=== PATIENT | male | born 1980 | race Caucasian/White ===

== ENCOUNTER 2017-07-14 15:33 | Outpatient (CLI) | payer OTHER ==
--- NOTE | 2017-07-15 09:41 | XRAY Report ---
THREE VIEW LEFT SHOULDER: 07/14/2017 CLINICAL INDICATION: Pain. FINDINGS: Internal and external rotational views and a scapular Y view of the left shoulder demonstrate no evidence of fracture or dislocation. The joint spaces are preserved. No radiopaque foreign body is seen in the soft tissues. IMPRESSION: NORMAL LEFT SHOULDER. TD: 07/15/2017 09:40
== END 2017-07-14 15:34 | disposition home or self-care (01) ==
LOC: DI.N 15:33
PROVIDERS: ATTEND Specialist
DX: M25.512 Pain in left shoulder (principal)

== ENCOUNTER 2023-05-20 10:18 | Emergency (ER) | payer OTHER ==
[2023-05-20 10:38] VITALS: O2SAT 97
[2023-05-20 10:43] LABS: BASOPHILS # (AUTO) 0.1 10^3/uL (0.0-0.1); BASOPHILS % (AUTO) 0.6 %; EOSINOPHILS # (AUTO) 0.2 10^3/uL (0.0-0.7); EOSINOPHILS % (AUTO) 2.3 %; HCT - HEMATOCRIT 44.8 % (42.0-52.0); HGB - HEMOGLOBIN 14.8 g/dL (14.0-18.0); LYMPHOCYTES # (AUTO) 2.2 10^3/uL (1.5-3.5); LYMPHOCYTES % (AUTO) 21.7 %; MEAN CORPUSCULAR HEMOGLOBIN 26.9 pg (27.0-31.0); MEAN CORPUSCULAR VOLUME 81.5 fL (80.0-94.0); MEAN PLATELET VOLUME 10.1 fL (7.4-11.4); MONOCYTES # (AUTO) 0.6 10^3/uL (0.0-1.0); MONOCYTES % (AUTO) 6.1 %; PLT - PLATELET COUNT 274 10^3/uL (130-450); RED CELL DISTRIBUTION WIDTH 13.4 % (12.0-15.0); WHITE BLOOD COUNT 10.2 x10^3/uL (4.8-10.8)
--- NOTE | 2023-05-20 10:51 | ED Physician Documentation ---
PD HPI CHEST PAIN - Stated complaint Stated Complaint: new rul - Chief complaint Chief Complaint: Cardiac - History of Present Illness Timing - onset: How many hours ago (several hours ago.), Today Timing - onset during: Rest Timing - details: Gradual onset, Still present (has decreased to minimal since onset.), Waxing and waning Quality: Pressure, Tightness. No: Sharp, Tearing Location: Substernal, Left chest (fleeting episodes of chest tightness for few seconds at a time over the past week or so. Nonexertional. Feels better when active (less frequent). Has had more consistent pressure feeling this morning.) Associated symptoms: Palpitations. No: Shortness of air, Nausea, Feeling faint / dizzy Similar symptoms before: Has not had sx before Recently seen: Clinic (went to Walk [facility] and referred to ER for more prompt testing.), Other (had had elevated blood pressure and seen by Dr. Rockwell Cardiology for BP treatment and heart assessment. Had screening ECHO and stress test he believes June 2022 which were normal.) Review of Systems Constitutional: denies: Fever, Chills Nose: denies: Rhinorrhea / runny nose, Congestion Throat: denies: Sore throat Respiratory: denies: Dyspnea, Cough GI: denies: Abdominal Pain, Nausea, Vomiting, Diarrhea PD PAST MEDICAL HISTORY - Past Medical History Cardiovascular: None Respiratory: None Neuro: None Endocrine/Autoimmune: None - Allergies Allergies/Adverse Reactions: Allergies Allergy/AdvReac Type Severity Reaction Status Date / Time No Known Drug Allergies Allergy Verified 05/20/23 10:33 - Social History Does the pt smoke?: No Smoking Status: Never smoker PD ED PE NORMAL - Vitals Vital signs reviewed: Yes - General General: Alert and oriented X 3, No acute distress, Well developed/nourished - Neck Neck: Supple, no meningeal sign, No adenopathy - Cardiac Cardiac: RRR, No murmur - Respiratory Respiratory: No respiratory distress, Clear bilaterally - Abdomen Abdomen: Soft, Non tender - Derm Derm: Normal color, Warm and dry - Extremities Extremities: No edema, No calf tenderness / cord - Neuro Neuro: Alert and oriented X 3, No motor deficit, Normal speech Results - Vitals Vitals: Vital Signs - 24 hr 05/20/23 05/20/23 10:26 12:21 Temperature 36.2 C L Heart Rate 94 89 Respiratory 18 15 Rate Blood Pressure 152/105 H 137/51 H O2 Saturation 97 97 Oxygen O2 Source Room air - EKG (time done) 10:29 EKG releavant findings:: EKG personally interpreted by author of this note. Relevant findings are: Rate: Rate (enter#) (95) [place]: Normal Intervals: Normal [place] QRS: Normal Ischemia: Normal ST segments. No: ST elevation c/w ischemia, ST depression - Labs Labs: Laboratory Tests 05/20/23 05/20/23 05/20/23 10:35 10:35 10:35 WBC 10.2 RBC 5.50 Hgb 14.8 Hct 44.8 MCV 81.5 MCH 26.9 L MCHC 33.0 RDW 13.4 Plt Count 274 MPV 10.1 Neut # (Auto) 7.0 H Lymph # (Auto) 2.2 [place] # (Auto) 0.6 Eos # (Auto) 0.2 Baso # (Auto) 0.1 Absolute Nucleated RBC 0.00 Nucleated RBC % 0.0 Sodium 134 L Potassium 3.9 Chloride 100 L Carbon Dioxide 25 Anion Gap 9.0 BUN 17 Creatinine 0.7 Estimated GFR (MDRD) 125 Glucose 344 H Calcium 9.2 Magnesium 1.8 Total Bilirubin 0.6 AST 19 ALT 31 Alkaline Phosphatase 97 Troponin I High Sens 5.3 B-Natriuretic Peptide Total Protein 7.6 Albumin 4.3 Globulin 3.3 Albumin/Globulin Ratio 1.3 Lipase 26 05/20/23 10:35 WBC RBC Hgb Hct MCV MCH MCHC RDW Plt Count MPV Neut # (Auto) Lymph # (Auto) [place] # (Auto) Eos # (Auto) Baso # (Auto) Absolute Nucleated RBC Nucleated RBC % Sodium Potassium Chloride Carbon Dioxide Anion Gap BUN Creatinine Estimated GFR (MDRD) Glucose Calcium Magnesium Total Bilirubin AST ALT Alkaline Phosphatase Troponin I High Sens B-Natriuretic Peptide 19 Total Protein Albumin Globulin Albumin/Globulin Ratio Lipase - Rads (name of study) chest xray Relevant Findings:: Prelim report reviewed, EMP independent interpretation of test (no acute process) PD Medical Decision Making - ED course Complexity details: reviewed results, considered differential (atypical, nonexertional fleeting episodes of chest discomfort. Consider possible intermi ttent palpitations. Can get trop/BNP to ensure no acute heart process. ), d/w patient Reviewed Lab Results: normal Trop and BNP. Normal CBC and chemistry ordered and reviewed by me. CXR without acute process. Unclear cause of symptoms. Departure - Departure Disposition: 01 Home, Self Care Clinical Impression: Chest discomfort Condition: Stable Record reviewed to determine appropriate education?: Yes Instructions: ED Chest Pain Atypical Unkn Cause Comments: Your chest x-ray, EKG, blood tests that included specifically looking for heart attack and heart failure (troponin and BNP) are normal. No signs of a heart or lung cause to your symptoms at this point. This in combination with your echocardiogram and stress test within the last year are fairly good then at excluding heart disease as a cause. Unclear the cause therefore of your symptoms. Given some intermittent short symptoms at times, another possibility could be irregular heart rhythms intermittently. You could talk with your primary care or Dr. Rockwell regarding this to see if they would want you to wear a Zio patch/Holter type heart rhythm monitor over the course of a week or such to see if any that is occurring. Otherwise stay well-hydrated and usual medicines. I presume therefore your symptoms are more musculoskeletal or such. Tylenol or ibuprofen if needed. Forms: PCP List Discharge Date/Time: 05/20/23 12:34
[2023-05-20 10:57] LABS: ALBUMIN 4.3 g/dL (3.2-5.5); ALBUMIN/GLOBULIN RATIO 1.3 (1.0-2.2); BILIRUBIN,TOTAL 0.6 mg/dL (0.2-1.0); CALCIUM 9.2 mg/dL (8.5-10.3); CREATININE 0.7 mg/dL (0.6-1.3); POTASSIUM 3.9 mmol/L (3.5-4.5); TOTAL PROTEIN 7.6 g/dL (6.4-8.9)
[2023-05-20 11:04] LABS: TROPONIN I HIGH SENSITIVITY 5.3 ng/L (2.3-19.7)
[2023-05-20] MEDS: NITROGLYCERIN SL 0.4 MG TABLET SL STA (11:04)
--- NOTE | 2023-05-20 11:18 | XRAY Report ---
PROCEDURE: Chest 1V INDICATIONS: Chest pain TECHNIQUE: One view of the chest was acquired. COMPARISON: None. FINDINGS: Surgical changes and devices: None. Lungs and pleura: No pleural effusions or pneumothorax. Lungs are clear. Mediastinum: Mediastinal contours appear normal. Heart size is normal. Bones and chest wall: No suspicious bony lesions. Overlying soft tissues appear unremarkable. IMPRESSION: No acute cardiopulmonary process. Reviewed by: Pearl Johnson MD on 05/20/2023 11:17 AM [facility] Approved by: Pearl Johnson MD on 05/20/2023 11:17 AM [facility] Station ID: [id number]
[2023-05-20 12:23] VITALS: BP 137/51
== END 2023-05-20 12:34 | disposition home or self-care (01) ==
LOC: ED 10:18
DX: R07.89 Other chest pain (principal)
CPT/HCPCS: 36415; 71045; 80053; 83690; 83735; 83880; 84484; 85025; 93005; 99283; 99284; A9270